=== PATIENT | male | born 1980 | race Caucasian/White ===

== ENCOUNTER 2017-09-15 13:02 | Emergency (ER) | payer SELFPAY ==
[~2017-09-15] VITALS: Ht 190.5 cm; Wt 136.4 kg
[2017-09-15 13:10] VITALS: Ht 190.5 cm; Wt 136.4 kg
[2017-09-15 13:31] LABS: BASOPHILS 0.2 % (0-2); EOSINOPHILS 2.1 % (0-7); HEMATOCRIT 41.3 % (42.0-54.0); HEMOGLOBIN 14.6 g/dL (13.5-17.5); IMMATURE GRANULOCYTES 0.2 % (0-5); LYMPHOCYTES 12.5 % (15-50); MCHC 35.4 g/dL (31.0-37.0); MCV 82.1 fL (80.0-100.0); MEAN PLATELET VOLUME 10.1 fL (7.4-10.4); MONOCYTES 8.8 % (2-11); NEUTROPHILS 76.2 % (40-80); PLATELET COUNT 230 10x3/uL (130-400); RBC 5.03 10x6/uL (4.20-6.10); RDW 13.1 % (11.5-14.5); WBC 9.3 10x3/uL (4.8-10.8)
[2017-09-15 13:55] LABS: ALBUMIN 4.1 g/dL (3.4-5.0); ALKALINE PHOSPHATASE 106 U/L (46-116); ALT (SGPT) 37 U/L (10-68); CALC OSMOLALITY 284 mosm/kg (275-300); CALCIUM 9.5 mg/dL (8.5-10.1); CARBON DIOXIDE 26.7 mmol/L (21.0-32.0); CHLORIDE - SERUM 106 mmol/L (98-107); CREATININE - SERUM 0.8 mg/dL (0.6-1.3); GLUCOSE 92 mg/dL (74-106); POTASSIUM - SERUM 4.2 mmol/L (3.5-5.1); PROTEIN - SERUM 7.8 g/dL (6.4-8.2); SODIUM 143 mmol/L (136-145); UREA NITROGEN 12 mg/dL (7-18); eGFR NON AFRICAN AMERICAN > 90 mL/min (90-120)
[2017-09-15 14:05] LABS: CKMB 3.8 U/L (0.0-3.6); TROPONIN-I < 0.017 ng/mL (0.000-0.060)
[2017-09-15 16:05] VITALS: BP 138/90
== END 2017-09-15 16:07 | disposition home or self-care (01) ==
LOC: D.ER 13:02
PROVIDERS: Family Medicine
DX: R07.89 Other chest pain (principal)